=== PATIENT | male | born 1955 | race Caucasian/White ===

== ENCOUNTER 2016-09-20 21:35 | Emergency (ER) | payer OTHER ==
--- NOTE | 2016-09-20 21:56 | C.PDOC ---
History Of Present Illness Patient is a 61 year old male on dialysis who presents to the ER with a complaint of a burning epigastric pain for the past 4-5 days. Patient denies fever, nausea or vomiting. Chief Complaint (Nursing): Abdominal Pain History Per: Patient History/Exam Limitations: no limitations Onset/Duration Of Symptoms: Days (4-5) Current Symptoms Are (Timing): Still Present Location Of Pain/Discomfort: Epigastric Radiation Of Pain To:: None Quality Of Discomfort: Burning Associated Symptoms: denies: Fever, Nausea, Vomiting Exacerbating Factors: None Alleviating Factors: None Recent travel outside of the [place]: No Past Medical History Reviewed: Historical Data, Nursing Documentation, Vital Signs Vital Signs: Last Vital Signs Temp 97.8 F 09/21/16 02:16 Pulse 79 09/21/16 02:16 Resp 20 09/21/16 02:16 BP 149/70 09/21/16 02:16 Pulse Ox 98 09/21/16 02:16 - Medical History PMH: Fractures (L foot 1968), HTN, Hypercholesterolemia, End Stage Renal Disease Surgical History: Coronary Stent (2014) - Doocuments Procedures ASSISTANCE WITH RESPIRATORY VENTILATION, >96 HRS, CPAP (04/08/15) BYPASS LEFT BRACHIAL ARTERY TO UPPER ARM VEIN, OPEN APPROACH (04/08/15) EXCISION OF LEFT KIDNEY, PERCUTANEOUS APPROACH, DIAGNOSTIC (04/08/15) INSERT INFUSION DEV IN R INT JUGULAR VEIN, PERC (04/08/15) INSERTION OF INFUSION DEV INTO R FEMOR VEIN, PERC APPROACH (04/08/15) INTRODUCTION OF SERUM/TOX/VACCINE INTO MUSCLE, PERC APPROACH (04/08/15) PERFORMANCE OF URINARY FILTRATION, MULTIPLE (04/08/15) PERFORMANCE OF URINARY FILTRATION, SINGLE (05/18/15) TRANSFUSE NONAUT RED BLOOD CELLS IN PERIPH VEIN, PERC (05/18/15) Family History: States: Unknown Family Hx - Social History Hx Tobacco Use: Yes (Three packs a day) Hx Alcohol Use: No Hx Substance Use: No - Immunization History Hx Tetanus Toxoid Vaccination: No Hx Influenza Vaccination: Yes Hx Pneumococcal Vaccination: Yes Review Of Systems Constitutional: Negative for: Fever Gastrointestinal: Positive for: Abdominal Pain (Epigastric). Negative for: Nausea, Vomiting Physical Exam - Physical Exam Appears: Non-toxic, No Acute Distress Skin: Normal Color, Warm, Dry Head: Atraumatic, Normacephalic Eye(s): bilateral: Normal Inspection, EOMI Oral Mucosa: Moist Chest: Symmetrical, No Tenderness Cardiovascular: Rhythm Regular, No Murmur Respiratory: Normal Breath Sounds, No Rales, No Rhonchi, No Wheezing Gastrointestinal/Abdominal: Soft, Tenderness (Mild epigastric, RLQ), No Guarding , No Rebound Neurological/Psych: Oriented x3, Normal Speech, Normal Cognition ED Course And Treatment - Laboratory Results Result Diagrams: 09/20/16 22:19 09/20/16 22:19 - CT Scan/US CT abd/pel w/ PO contrast Other Rad Studies (CT/US): Read By Radiologist, Radiology Report Reviewed CT/US Interpretation: IMPRESSION: No definitive, interval or acute noncontrast C.T. findings to explain the patient's presentation. Arteriopath. 4 cm infrarenal abdominal aortic aneurysm. Meds aortic aneurysm Surveillance. Aneurysm Size cm Recommended Interval. 2.5-2.9 5 years. 3.0-3.4 3 years. 3.5- 3.9 2 years. 4.0-4.4 1 year. 4.5-4.9 6 months. 5.0-5.5 Consult for intervation, q3-6 months. Interval peritoneal catheter. Small amount of fluid in the peritoneum may be related to the catheter. Diverticulosis. Incomplete urinary bladder distention with prominent wall. Pericystic induration. Cystitis not excluded. Correlate with urinalysis Progress Note: Blood work and CT abd/pel w/ PO contrast ordered. On reevaluation, patient feels better, no longer has stomach pain, denies tenderness to the abdomen, will be discharged home. Disposition Counseled Patient/Family Regarding: Diagnosis - Disposition Referrals: [facility] [Outside] Disposition: HOME/ ROUTINE Disposition Time: 02:03 Condition: STABLE Prescriptions: Famotidine [Pepcid] 20 mg PO BID #14 tab Instructions: Gastritis (GEN), Abdominal Aortic Aneurysm (GEN), Abdominal Pain (ED), End Stage Kidney Disease (ED) - POA Present On Arrival: None - Clinical Impression Clinical Impression: Abdominal pain, Gastritis, ESRD (end stage renal disease), Abdominal aortic aneurysm - Scribe Statement The provider has reviewed the documentation as recorded by the Mirlandeibjanna Steele All medical record entries made by the Mirlandeibjanna were at my direction and personally dictated by me. I have reviewed the chart and agree that the record accurately reflects my personal performance of the history, physical exam, medical decision making, and the department course for this patient. I have also personally directed, reviewed, and agree with the discharge instructions and disposition.
[2016-09-20 22:02] VITALS: O2SAT 98
[2016-09-20] MEDS ORDERED: Iohexol 240 (50 ml) PO ONE (22:04)
[2016-09-20 22:25] LABS: BASO # 0.1 K/uL (0.0-0.2); BASO % 0.9 % (0.0-2.0); EOS # 0.8 K/uL (0.0-0.7); EOS % 8.1 % (0.0-4.0); HEMATOCRIT 30.4 % (35.0-51.0); LYMPH # 1.4 K/uL (1.0-4.3); LYMPH % 14.5 % (20.0-40.0); MEAN CELL VOLUME 86.6 fL (80.0-94.0); MEAN CORPUSCULAR HEMOGLOBIN 28.8 pg (27.0-31.0); MEAN CORPUSCULAR HGB CONC 33.3 g/dL (33.0-37.0); MEAN PLATELET VOLUME 7.3 fL (7.2-11.7); MONO # 0.8 K/uL (0.0-0.8); MONO % 8.3 % (0.0-10.0); RED CELL DISTRIBUTION WIDTH 15.8 % (11.5-14.5); WHITE BLOOD COUNT 9.4 K/uL (4.8-10.8)
[2016-09-20] MEDS ORDERED: Iohexol 240 (50 ml) ONE (22:30)
[2016-09-20 22:37] LABS: POTASSIUM 4.7 mmol/L (3.6-5.2)
[2016-09-20 22:39] LABS: BILIRUBIN,TOTAL 0.6 mg/dL (0.2-1.3); TOTAL PROTEIN 7.6 g/dL (6.3-8.3)
[2016-09-20 22:40] LABS: CALCIUM 8.4 mg/dl (8.6-10.4)
[2016-09-21 02:17] VITALS: BP 149/70; PULSE 79; RESP 20; TEMP 97.8
--- NOTE | 2016-09-21 10:41 | CT ---
PROCEDURE: CT Abdomen and Pelvis with contrast HISTORY: Right sided abdominal pain COMPARISON: 03/28/2015. TECHNIQUE: Contrast dose: Oral contrast only. Radiation dose: Total exam DLP = 635.12 mGy-cm. This CT exam was performed using one or more of the following dose reduction techniques: Automated exposure control, adjustment of the mA and/or kV according to patient size, and/or use of iterative reconstruction technique. FINDINGS: LOWER THORAX: Unremarkable. LIVER: Unremarkable. No gross lesion or ductal dilatation. GALLBLADDER AND BILE DUCTS: Unremarkable. PANCREAS: Unremarkable. No gross lesion or ductal dilatation. SPLEEN: Unremarkable. ADRENALS: Unremarkable. No mass. KIDNEYS AND URETERS: Unremarkable. No hydronephrosis. No solid mass. VASCULATURE: Infrarenal abdominal aortic aneurysm 4 x 4.5 cm. 5 cm in length. No significant interval change compared to the prior examination(s). The intraperitoneal and presumed dialysis catheter. BOWEL: Unremarkable. No obstruction. No gross mural thickening. Diverticulosis without an acute inflammatory component or other associated pathologic process. APPENDIX: Normal appendix. PERITONEUM: Unremarkable. No free fluid. No free air. LYMPH NODES: Unremarkable. No enlarged lymph nodes. BLADDER: Unremarkable. REPRODUCTIVE: Unremarkable. BONES: No acute fracture. OTHER FINDINGS: None. IMPRESSION: Stable infrarenal abdominal aortic aneurysm. No significant interval change compared to the prior examination(s). Concordant results (preliminary interpretation) provided by [facility] [employer]. Procedure Completed: :14. Preliminary ([facility]) Report: Dictated and Authenticated: 01:44. Final Interpretation: 10:39. September 21, 2016.
== END 2016-09-21 02:17 | disposition home or self-care (01) ==
LOC: C.ER 21:35
DX: K29.70 Gastritis, unspecified, without bleeding (principal); I12.0 Hypertensive chronic kidney disease with stage 5 chronic kidney disease or end stage renal disease; N18.6 End stage renal disease; Z99.2 Dependence on renal dialysis; Z72.0 Tobacco use; I71.4 Abdominal aortic aneurysm, without rupture
CPT/HCPCS: 74176; 80053; 83690; 85025; 96374; 99285; Q9966